=== PATIENT | male | born 1960 | race Caucasian/White ===

== ENCOUNTER 2019-10-05 00:11 | Inpatient (IN) | payer MEDICAID ==
[~2019-10-05] VITALS: Ht 175.3 cm; Wt 80.3 kg
--- NOTE | 2019-10-05 00:35 | NUR ---
Dr. Kc at bedside for MSE.
[2019-10-05] MEDS ORDERED: LIDOCAINE 2% (UROJET) 10 ML JELLY MM ONE ×2 (00:39→00:45)
--- NOTE | 2019-10-05 01:00 | NUR ---
PATIENT ARRIVE AT THE ER WITH C/O URINARY RETENTION, HAS F/C WANTS IT REPLACED.
[2019-10-05 01:01] LABS: BASOPHILS # (AUTO) 0.1 K/uL (0.0-8.0); BASOPHILS % (AUTO) 1.1 % (0.0-2.0); EOSINOPHILS # (AUTO) 0.4 K/uL (0.0-0.7); EOSINOPHILS % (AUTO) 4.3 % (0.0-7.0); HEMATOCRIT 22.1 % (36.7-47.1); HEMOGLOBIN 7.9 g/dL (12.5-16.3); LYMPHOCYTES # (AUTO) 1.9 K/uL (20.0-40.0); LYMPHOCYTES % (AUTO) 18.9 % (20.5-51.5); MEAN CORPUSCULAR HEMOGLOBIN 34.4 uug (23.8-33.4); MEAN CORPUSCULAR HGB CONC 36 g/dL (32.5-36.3); MEAN CORPUSCULAR VOLUME 96.3 fL (73.0-96.2); MONOCYTES # (AUTO) 0.8 K/uL (2.0-10.0); MONOCYTES % (AUTO) 8.4 % (0.0-11.0); NEUTROPHILS # (AUTO) 6.6 K/uL (1.8-8.9); NEUTROPHILS % (AUTO) 67.3 % (38.5-71.5); PLATELET COUNT (AUTO) 326 K/uL (152-348); WHITE BLOOD COUNT (AUTO) 9.9 K/uL (3.6-10.2)
[2019-10-05 01:07] LABS: ALANINE AMINOTRANSFERASE 21 U/L (16-63); ALKALINE PHOSPHATASE 74 U/L (50-136); ASPARTATE AMINOTRANSFERASE 19 U/L (15-37); BILIRUBIN,DIRECT < 0.1 mg/dL (0.0-0.2); BILIRUBIN,TOTAL 0.2 mg/dL (0.2-1.0); CARBON DIOXIDE 24 mmol/L (21-32); CHLORIDE 106 mmol/L (98-107); CREATININE 2.6 mg/dL (0.6-1.3); GLUCOSE 111 mg/dL (74-106); POTASSIUM 4.3 mmol/L (3.5-5.1); TOTAL PROTEIN, SERUM 6.8 g/dL (6.4-8.2); UREA NITROGEN, BLOOD 39 mg/dL (7-18)
[2019-10-05 01:07] LABS: *BILIRUBIN,URIN NEGATIVE (NEGATIVE); *BLOOD, URINE 2+ (NEGATIVE); *CLARITY,URINE CLOUDY (CLEAR); *COLOR,URINE YELLOW (YELLOW); *KETONES,URINE NEGATIVE (NEGATIVE); *UROBILINOGEN,URINE 0.2 E.U./dl (NORMAL); LEUKOCYTE ESTERASE ,URINE 3+ (NEGATIVE); NITRITE, URINE NEGATIVE (NEGATIVE); PH,URINE 5.5 (5.0-8.0); UGLUCOSE NEGATIVE (NEGATIVE)
[2019-10-05 01:20] LABS: BACTERIA,URINE NONE SEEN /HPF (NONE SEEN); RBC,URINE 20-50 /HPF (0-3); SQUAMOUS EPITHELIAL CELL,UR FEW /HPF (NONE SEEN)
[2019-10-05 01:22] LABS: WBC,URINE 20-50 /HPF (0-3)
[2019-10-05] MEDS ORDERED: ACETAMINOPHEN ES 500 MG TABLET PO ONE (01:30)
[2019-10-05] MEDS ORDERED: CEFTRIAXONE 1 G in IV DEXTROSE 5% 50 ML IV ONE (01:30)
[2019-10-05] MEDS ORDERED: IV NS 1000 ML 1,000 ML IV ONE (01:30)
[2019-10-05] MEDS ORDERED: CEFTRIAXONE /D5W 50ML IVPB **ER PYXIS IV ONE (01:30)
--- NOTE | 2019-10-05 02:51 | NUR ---
Epic panel call placed, spoke to Nerissa stated she will get a hold of Bassam Garza for admitting.
--- NOTE | 2019-10-05 02:53 | NUR ---
Dr. Kc on panel call with Dr. Ortiz . Patient accepted for admission to Med/Surg unit Room 303 , Dx Pyelonephritis.
[2019-10-05] MEDS ORDERED: IV NS 1000 ML 1,000 ML IV PRN (02:58)
[2019-10-05] MEDS ORDERED: ONDANSETRON 4 MG/2 ML VIAL IV PRN (03:00)
[2019-10-05] MEDS ORDERED: Z GUARD REMEDY PASTE 57 GM TUBE TOP PRN (03:00)
[2019-10-05] MEDS ORDERED: MAGNESIUM HYDROXIDE 30 ML LIQUID UDC PO PRN (03:00)
[2019-10-05] MEDS ORDERED: HYDROCODONE/APAP 5-325MG TABLET PO PRN (03:00)
[2019-10-05] MEDS ORDERED: ACETAMINOPHEN 325 MG TABLET PO PRN (03:00)
[2019-10-05] MEDS ORDERED: MORPHINE SULFATE 2 MG/1 ML DISP.SYRIN IV PRN (03:00)
--- NOTE | 2019-10-05 03:00 | NUR ---
Report given to Med/machine billerCELI Álvarez.
[2019-10-05] MEDS ORDERED: PANTOPRAZOLE SODIUM 40 MG TABLET.DR PO ONE (03:29)
--- NOTE | 2019-10-05 06:26 | NUR ---
Follow up on Covid test x3. Just got picked up by [facility] [employer] [facility] about 10 mins ago per lab/Milo.
[2019-10-05 07:30] VITALS: BP 146/74
--- NOTE | 2019-10-05 07:30 | NUR ---
Pt arrived in RM 303 via kvgn, AOx4. On RA with no SOB or distress noted at this time. IV on left FA 20g flushed and patent. Skin intact, able to ambulate to bathroom. Denied any pain at this time. Alvarez catheter in place draining clear yellow urine. Oriented to room and unit policy. Pt stated that he is homeless but is using family member's address for unemployment issues. toll test desk worker Lucinda and rn case management Moises were made aware. Bed locked in lowest position with siderails 2x up. Call light and phone within reach. Will monitor
[2019-10-05] MEDS: PANTOPRAZOLE SODIUM 40 MG TABLET.DR PO SCH (08:19)
--- NOTE | 2019-10-05 13:20 | NUR ---
Dr. Burrell, the radiologist, called for CT abdomen/ pelvis without contrast result. He suggested CT abdomen/ pelvis with contrast if suspecting pyelonephritis. Informed Cosme Dupont NP.
[2019-10-05] MEDS ORDERED: MIRALAX 17 GM POWD.PACK PO PRN (13:30)
[2019-10-05 15:39] VITALS: BP 143/71
--- NOTE | 2019-10-05 16:00 | NUR ---
[employer] Consultation: SW met with this patient today. Patient is a 59 year old male, alert, oriented, receptive to meeting with this SW. Patient was seated up in bed in his assigned hospital room. Patient was admitted to [facility] on 10/04 with the diagnosis of pyelonephritis. Patient states he is currently homeless, sometimes sleeping at his children's homes, and sometimes sleeping in his car. Patient states he has 3 children, one who lives in [place] and 2 that live in [place]. Patient stated that he also has 1 step-son. 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 Patient states that his current source of income is unemployment, however he plans to look for work as soon as his health gets better. Patient's mailing address was confirmed to be the one listed on the face sheet: [id number], [id number] [id number]. Patient's phone number is [phone]. SW verified the information on the face sheet for "person to notify" and patient corrected the information to the following: Dyana Aggarwal (mother) [phone]. Patient also provided additional contact information: Merlene (daughter) [phone] and John (son-in-law) [phone]. Patient was cooperative during the interview, maintained appropriate eye contact. Affect and behavior were WNL. Patient's grooming was fair. Speech and thought process were appropriate. No hallucinations or delusions present. Patient denied SI or HI. Discharge plans discussed with the patient, and patient stated that he will probably stay with his daughter for a few days, but then "I would want to go off on my own". SW discussed homeless community resources, and offered to provide the patient with a resource packet. Patient verbalized agreement. SW provided patient with the following resources: a list of year-round shelters: [facility] [address], ; [place] [facility] [address] [facility], ; and [place] [facility] [address] [facility], , along with resources for places to go for food, showers, substance abuse treatment, mental health services, community medical clinics, and pharmacies. These include the following: the [facility] homeless directory which provides a list of places that individuals can go to throughout the week for hot meals, sack lunches, food pantries, and showers; a list of mental health clinics: [facility] [address] [place] [address], ; [facility] [address] [place] [address], ; [facility] [address] [place] [address], ; a list of medical clinics: [facility] [address] [address] [facility] [address], [place]. [place], ; [facility] [address], [address], [place] [address]; [facility] [address] [place] [address], ; and a list of substance abuse programs: [facility] Substance Abuse Self-helpline ; [facility] ; [facility] ; [facility] ; [facility] ; [facility] [phone]; [place] [facility] [phone]. YUNG also provided patient with information on locations of pharmacies. Patient thanked YUNG for her time and information provided. No further SS interventions needed at this time, however YUNG informed the patient that SW will continue to be available to the patient, as needed. Patient expressed understanding. YUNG will will work with the interdisciplinary team, as needed, to ensure a safe discharge.
[2019-10-05] MEDS: IV NS 1000 ML 1,000 ML IV PRN ×2 (16:55→22:58)
--- NOTE | 2019-10-05 19:30 | NUR ---
Patient received in bed. AAOX4. Patient denies any acute distress or pain at this time. V/S stable, on room air saturating WNL. Patient has a gurrola draining clear yellow urine, with 2700ml output. IV intact with NS running at 100ml/hour. Safety measures in place. Call light within reach. Will continue with the plan of care.
[2019-10-05 20:02] VITALS: BP 144/68
[2019-10-06] MEDS ORDERED: CEFTRIAXONE 1 G in IV DEXTROSE 5% 50 ML IV SCH (01:00)
[2019-10-06 04:00] VITALS: BP 146/73
[2019-10-06] MEDS: PANTOPRAZOLE SODIUM 40 MG TABLET.DR PO SCH (06:08)
[2019-10-06 06:19] LABS: BASOPHILS # (AUTO) 0.1 K/uL (0.0-8.0); BASOPHILS % (AUTO) 1.3 % (0.0-2.0); EOSINOPHILS # (AUTO) 0.4 K/uL (0.0-0.7); EOSINOPHILS % (AUTO) 5.4 % (0.0-7.0); HEMATOCRIT 24.8 % (36.7-47.1); HEMOGLOBIN 8.6 g/dL (12.5-16.3); LYMPHOCYTES # (AUTO) 2.9 K/uL (20.0-40.0); LYMPHOCYTES % (AUTO) 34.8 % (20.5-51.5); MEAN CORPUSCULAR HEMOGLOBIN 33.9 uug (23.8-33.4); MEAN CORPUSCULAR HGB CONC 35 g/dL (32.5-36.3); MEAN CORPUSCULAR VOLUME 97.4 fL (73.0-96.2); MONOCYTES # (AUTO) 0.7 K/uL (2.0-10.0); MONOCYTES % (AUTO) 8.3 % (0.0-11.0); NEUTROPHILS # (AUTO) 4.2 K/uL (1.8-8.9); NEUTROPHILS % (AUTO) 50.2 % (38.5-71.5); PLATELET COUNT (AUTO) 318 K/uL (152-348); RED BLOOD CELL COUNT(AUTO) 2.55 MIL/uL (4.06-5.63); WHITE BLOOD COUNT (AUTO) 8.3 K/uL (3.6-10.2)
[2019-10-06 06:28] LABS: BILIRUBIN,TOTAL 0.3 mg/dL (0.2-1.0); CREATININE 2.1 mg/dL (0.6-1.3); MAGNESIUM 1.8 mg/dL (1.8-2.4); PHOSPHOROUS 3.7 mg/dL (2.5-4.9); POTASSIUM 4.5 mmol/L (3.5-5.1); TOTAL PROTEIN, SERUM 6.1 g/dL (6.4-8.2)
--- NOTE | 2019-10-06 06:53 | NUR ---
Pt slept intermittently throughout the night. Pt awake and denies any acute distress or pain at this time. V/S stable, on room air. Alvarez is intact and draining well. IV intact with NS running at 100cc. Prescribed medications were given, pt tolerated. Comfort care and needs attended. Safety measures in place. Call light within reach. Bed low and locked in position. Will endorse to the oncoming nurse accordingly.
[2019-10-06 07:37] VITALS: BP 143/77
--- NOTE | 2019-10-06 08:00 | NUR ---
Received pt in bed awake AOx3, on RA with no SOB or distress noted. Pt kept repeating answers to the same question, had to redirect patient. IV on left AC 20g running NS @ 100cc flushed and patent. Alvarez catheter in place draining clear light yellow urine. Bed locked in lowest position with siderails 2x up. Call light and phone within reach
--- NOTE | 2019-10-06 12:55 | NUR ---
Pt left unit ambulatory AOx4, with no SOB or distress noted at this time. DC forms signed and instructions given, verbalized understanding. Prescription and homeless referrals given. Homeless waiver signed. Belongings list signed all accounted for, cable tool operator returned to pt. Alvarez catheter in place draining clear yellow urine, replace bag with leg bag. ID bands and IV on left AC 18g removed, tolerated well.
[2019-10-10 06:09] LABS: A/G RATIO 1.1 (0.7-1.7); ALBUMIN 2.8 g/dL (2.9-4.4); ALPHA-1-GLOBULIN 0.3 g/dL (0.0-0.4); ALPHA-2-GLOBULIN 0.9 g/dL (0.4-1.0); GAMMA GLOBULIN 0.4 g/dL (0.4-1.8); GLOBULIN, TOTAL 2.6 g/dL (2.2-3.9); M-SPIKE Not Observed g/dL (Not Observed)
== END 2019-10-06 12:50 | disposition home or self-care (01) | DRG 463 ==
LOC: ER 00:16 → MEDSURG3 06:54
PROVIDERS: ADMIT Nurse Practitioner Acute Care; ATTEND Nurse Practitioner Acute Care
DX: N12 Tubulo-interstitial nephritis, not specified as acute or chronic (principal); N17.0 Acute kidney failure with tubular necrosis; D53.9 Nutritional anemia, unspecified; F17.210 Nicotine dependence, cigarettes, uncomplicated; N18.9 Chronic kidney disease, unspecified; M89.9 Disorder of bone, unspecified; N40.1 Benign prostatic hyperplasia with lower urinary tract symptoms; Z59.0 Homelessness; J44.9 Chronic obstructive pulmonary disease, unspecified; I12.9 Hypertensive chronic kidney disease with stage 1 through stage 4 chronic kidney disease, or unspecified chronic kidney disease; F19.90 Other psychoactive substance use, unspecified, uncomplicated; B96.89 Other specified bacterial agents as the cause of diseases classified elsewhere
CPT/HCPCS: 36415; 71045; 76770; 83605; 83735; 83970; 84100; 84155; 84165; 85025; 86850; 86900; 86901; 87040; 87077; 87086; A9150; G0378; J0696; J7030; J7060